=== PATIENT | male | born 1980 | race Caucasian/White ===

== ENCOUNTER 2020-09-11 11:57 | Emergency (ER) | payer OTHER ==
[~2020-09-11 11:57] MED LIST: ALPRAZOLAM0.5 MG NG; BENTYL PO; CIPRO500 MG PO; COLACE 100MG C100 MG PO; ENOXAPARIN100 MG/1 M SC; FLAGYL500 MG PO; K-DUR TAB 20 M20 MEQ PO; NICOTINE PATCH1 EAC2 TOP; NORCO 5-325 TA1 EACH PO; PROTONIX40 MG PO; ROXICODONE TAB 55 MG PO; ZOLPIDEM TARTRAT5 MG PO
[2020-09-11 13:27] LABS: HEMOGLOBIN 16.4 gm/dl (14.0-17.5); RED BLOOD COUNT 4.71 M/UL (4.20-5.50); WHITE BLOOD COUNT 6.6 K/UL (4.5-11.0)
[2020-09-11 13:56] LABS: BUN/CREATININE RATIO 13 (0-10)
== END 2020-09-11 15:07 | disposition home or self-care (01) ==
LOC: ER1 11:57
PROVIDERS: Student in an Organized Health Care Education/Training Program
DX: R10.13 Epigastric pain (principal); M79.672 Pain in left foot; R11.2 Nausea with vomiting, unspecified; F17.210 Nicotine dependence, cigarettes, uncomplicated
CPT/HCPCS: 70450; 71045; 73630; 80053; 81001; 82550; 82553; 83690; 83874; 84484; 85025; 93005; 96374; 99284; G0480; J2405; Q9967

== ENCOUNTER 2021-07-23 16:36 | Emergency (ER) | payer OTHER ==
[2021-07-23 19:36] LABS: HEMOGLOBIN 19.6 gm/dl (14.0-17.5); RED BLOOD COUNT 5.25 M/UL (4.20-5.50); WHITE BLOOD COUNT 10.1 K/UL (4.5-11.0)
[2021-07-23 19:58] LABS: BUN/CREATININE RATIO 8 (0-10)
[2021-07-23] MEDS ORDERED: ZOFRAN ODT 4 MG4 MG PO (22:29)
== END 2021-07-23 22:33 | disposition home or self-care (01) ==
LOC: ER1 16:36
PROVIDERS: Family Medicine
DX: R11.2 Nausea with vomiting, unspecified (principal); R10.9 Unspecified abdominal pain
CPT/HCPCS: 80053; 81001; 82150; 83690; 85025; 99284